=== PATIENT | male | born 1980 | race Caucasian/White ===

== ENCOUNTER 2016-11-04 12:35 | Emergency (ER) | payer BC, OTHER ==
[2016-11-04 12:49] VITALS: BP 165/94
[2016-11-04] MEDS ORDERED: Bacitracin/Neomycin/Polymyxin B Oint 0.9 GM U/D Packet TOP ONE (13:08)
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
== END 2016-11-04 13:33 | disposition home or self-care (01) ==
LOC: LL.ED 12:35
DX: S61.211A Laceration without foreign body of left index finger without damage to nail, initial encounter (principal); Y92.009 Unspecified place in unspecified non-institutional (private) residence as the place of occurrence of the external cause; Z87.891 Personal history of nicotine dependence; Z98.890 Other specified postprocedural states; W26.8XXA Contact with other sharp object(s), not elsewhere classified, initial encounter
CPT/HCPCS: 12001; 99283

== ENCOUNTER 2019-12-04 20:17 | Emergency (ER) | payer BC ==
[2019-12-04 20:29] VITALS: BP 131/81; PULSE 95
[2019-12-04] MEDS: Bacitracin Oint 1 GM U/D Packet TOP ONE (21:03)
--- NOTE | 2019-12-04 21:07 | EDM.PDOC ---
ED HPI GENERAL MEDICAL PROBLEM - General Chief Complaint: Laceration Stated Complaint: laceration to lip Time Seen by Provider: 12/04/19 20:25 Source of Information: Reports: Patient History Limitations: Reports: No Limitations - History of Present Illness INITIAL COMMENTS - FREE TEXT/NARRATIVE: He is seen in the emergency department for evaluation of a laceration to his lower lip. He was chasing his daughter around at home and tripped and fell cutting the lip with his tooth. He denies any loss of consciousness. No dizziness or lightheadedness. No visual changes. He has a laceration on the lower lip. No pain in the mouth or teeth otherwise. He denies any other injury. Treatments [employer]: Reports: Cold Therapy - Related Data Allergies Allergy/AdvReac Type Severity Reaction Status Date / Time No Known Allergies Allergy Verified 12/04/19 20:18 Home Meds: Home Meds . [No Known Home Meds] 10/29/15 [History] Past Medical History HEENT History: Reports: Impaired Vision, Other (See Below) Cardiovascular History: Reports: None Respiratory History: Reports: None Gastrointestinal History: Reports: None Genitourinary History: Reports: None. Denies: BPH, Chronic Renal Insuffiency, Renal Calculus, STD, Urinary Incontinence, UTI, Recurrent Musculoskeletal History: Reports: Fracture, Other (See Below) Other Musculoskeletal History: Possible phalangeal fractures of digits 1, 2, 3, and 4 of the right foot with fourth distal metatarsal fracture of the left foot in December 2005 with surgeries as below Psychiatric History: Reports: None Hematologic History: Denies: Anemia, Blood Transfusion(s) Immunologic History: Reports: None Oncologic (Cancer) History: Reports: None Dermatologic History: Reports: None. Denies: Eczema, Psoriasis - Infectious Disease History Infectious Disease History: Reports: Chicken Pox - Past Surgical History Head Surgeries/Procedures: Reports: None HEENT Surgical History: Reports: Oral Surgery, Other (See Below) Cardiovascular Surgical History: Reports: None Respiratory Surgical History: Reports: None GI Surgical History: Reports: None Male Surgical History: Reports: Circumcision, Other (See Below) Endocrine Surgical History: Reports: None Neurological Surgical History: Reports: None Musculoskeletal Surgical History: Reports: ORIF, Other (See Below) Oncologic Surgical History: Reports: None Dermatological Surgical History: Reports: Skin Graft, Other (See Below) - Past Imaging History Past Imaging History: Reports: None. Denies: CAT Scan, PFT Social & Family History - Family History Cardiac: Reports: Hypertension, Other (See Below) Other Cardiac Family History: Father with hypertension Endocrine/Metabolic: Reports: Diabetes, type II, IDDM, Other (See Below) Other Endocrine/Metabolic Family History: Paternal grandfather with IDDM - Tobacco Use Smoking Status *Q: Never Smoker - Caffeine Use Caffeine Use: Reports: None - Recreational Drug Use Recreational Drug Use: No - Living Situation & Occupation Living situation: Reports: , with Family Occupation: Employed ED ROS GENERAL - Review of Systems Review Of Systems: See Below Constitutional: Denies: Fever, Chills HEENT: Denies: Ear Discharge, Ear Pain, Eye Pain, Nose Pain, Throat Pain Respiratory: Denies: Shortness of Breath, Cough Cardiovascular: Denies: Chest Pain, Palpitations Endocrine: Denies: Fatigue GI/Abdominal: Denies: Abdominal Pain, Nausea, Vomiting Musculoskeletal: Denies: Neck Pain Skin: Reports: No Symptoms Neurological: Denies: Confusion, Dizziness, Headache, Numbness, Tingling Psychiatric: Reports: No Symptoms Hematologic/Lymphatic: Reports: No Symptoms Immunologic: Reports: No Symptoms ED EXAM, SKIN/RASH Exam: See Below Exam Limited By: No Limitations General Appearance: Alert, WD/WN, No Apparent Distress Throat/Mouth: Other (2 cm curved laceration in the midline of the lower lip.) Head: Atraumatic, Normocephalic Neck: Non-Tender Neurological: Alert, Oriented, CN II-XII Intact Course - Vital Signs Text/Narrative:: The wound is infiltrated with 4 cc 1% lidocaine with good analgesia. The wound is irrigated with normal saline. Wound is closed with 5 simple interrupted sutures using a 4-0 chromic. Antibiotic ointment is applied. There were no complications. Last Recorded V/S: Last Vital Signs Temp 36.4 C 12/04/19 20:25 Pulse 95 12/04/19 20:25 Resp 12 12/04/19 20:25 BP 131/81 12/04/19 20:25 Pulse Ox 96 12/04/19 20:25 - Orders/Labs/Meds Meds: Medications Discontinued Medications Generic Name Dose Route Start Last Admin Trade Name Freq PRN Reason Stop Dose Admin Lidocaine HCl 5 ml 12/04/19 20:33 Xylocaine-Mpf 1% INJECT 12/04/19 20:34 ONETIME ONE Lidocaine HCl Confirm 12/04/19 20:31 Xylocaine-Mpf 1% Administered 12/04/19 20:32 Dose 5 ml .ROUTE .STK-MED ONE Departure - Departure Time of Disposition: 21:05 Disposition: Home, Self-Care 01 Condition: Good Clinical Impression: Laceration of lip - Discharge Information Instructions: Wound Infection, Mouth Laceration, [id number] Additional Instructions: Monitor for signs of infection including increasing redness or swelling, discharge from the wound or fever. Follow-up if this occurs. Tylenol and Advil as needed for pain. Apply triple antibiotic ointment to the lip 2-3 times daily. Amoxicillin 875 mg 1 tablet twice daily. Dispense 6 tablets in the emergency department. Follow-up as needed. Sepsis Event Note (ED) - Evaluation Sepsis Screening Result: No Definite Risk - Focused Exam Vital Signs: Vital Signs Temp Pulse Resp BP Pulse Ox 12/04/19 20:25 36.4 C 95 12 131/81 96
[2019-12-04] MEDS: Bacitracin Oint 1 GM U/D Packet ONE (21:46)
== END 2019-12-04 21:15 | disposition home or self-care (01) ==
LOC: LL.ED 20:17
DX: S01.511A Laceration without foreign body of lip, initial encounter (principal); W01.0XXA Fall on same level from slipping, tripping and stumbling without subsequent striking against object, initial encounter; Y92.009 Unspecified place in unspecified non-institutional (private) residence as the place of occurrence of the external cause
CPT/HCPCS: 12011; 99282; J2001